=== PATIENT | male | born 1965 | race Caucasian/White ===

== ENCOUNTER 2017-06-16 14:16 | Emergency (ER) | payer OTHER ==
[2017-06-16 14:26] VITALS: RESP 18; TEMP 98
--- NOTE | 2017-06-16 14:44 | EDPHY ---
H & P Smoking Status: Never smoked Time Seen by Provider: 06/16/17 14:29 HPI/ROS: CHIEF COMPLAINT: Right greater than left shoulder pain History by patient HISTORY OF PRESENT ILLNESS: 52-year-old man with no significant past medical history presents complaining of bilateral right greater than left shoulder pain and bruising after a fall 3 days ago. Patient was carrying a box when he slipped on the ice going up a ramp landed on his right side and also his head. He did not lose consciousness. He thinks right arm struck the ground in his left arm went against his body. He denies hitting the box with his arms. Subsequently he has had ongoing pain and soreness in noticed bruising on both sides. He has taken some ibuprofen with some relief. He denies any other pain or injury. He is not on any blood thinners and does not take aspirin. REVIEW OF SYSTEMS: As in HPI, and all other systems reviewed and are negative (Faith Sher) Physical Exam: General Appearance: Alert and uncomfortable appearing Head: Positive ecchymoses right face Eyes: Pupils equal and round no injection. Musculoskeletal: Neck is supple and nontender. Full range of motion of neck Extremities: Bilateral shoulder is without deformity, bilateral biceps with diffuse ecchymoses and tenderness, right shoulder with diffuse anterior tenderness, decreased range of motion actively secondary to pain, positive full range of motion passively, unable to extend arm against resistance Left shoulder, full range of motion with pain, full range of active motion with pain but unable to extend the arm against resistance, bilateral radial pulses 2 + and equal, distal sensation intact, distal motor intact. Skin: No rashes or lesions except as described above. Neuro: Awake alert oriented x3, cranial she is 12 intact, normal gait, see also above (Faith Sher) Constitutional: Initial Vital Signs Temperature (C) 36.6 C 06/16/17 14:24 Heart Rate 106 H 06/16/17 14:24 Respiratory Rate 18 06/16/17 14:24 Blood Pressure 145/100 H 06/16/17 14:24 O2 Sat (%) 97 06/16/17 14:24 O2 Delivery Mode Room Air Allergies/Adverse Reactions: No Known Allergies Allergy (Unverified 03/03/10 13:03) Home Medications: Medication Instructions Recorded Hydrocodone/APAP 5/325 [[place] 1 - 2 tab PO Q4 PRN #10 tab 06/16/17 5/325 (RX)] MDM/Departure - MDM Imaging Results: Imaging Impressions Shoulder X-Ray 06/16/17 14:39 Impression: 1. Findings suspicious for posterior dislocation of the left humeral head with impaction upon the posterior aspect of the glenoid portion of the scapula and fracture fragment adjacent to the humeral neck. If confirmation is necessary then consider CT imaging as clinically directed. Findings discussed with Faith Sher MD at 15:23 hour, 06/16/2017. Shoulder X-Ray 06/16/17 14:40 Impression: 1. Impaction type fracture right humeral neck with some callus formation suspected. 2. The humeral shaft is along the anterior aspect of the humeral neck fracture. Humerus X-Ray 06/16/17 14:41 Impression: 1. Impaction type fracture right humeral neck with early callus formation suspected. Extremity CT 06/16/17 15:33 Impression: Posteriorly dislocated left shoulder joint, with marked comminuted fracture injury to the anterior half of the left humeral head. Results of the patient's bilateral shoulder CT scans called to Dr. Bailey Govea at 4:[address] 06/16/17 15:34 Impression: Transverse moderately comminuted nondisplaced right humeral neck fracture, without intra-articular extension. Underlying right glenohumeral osteoarthritis. 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 X-ray revealed bilateral humeral neck fractures. Radiologist was concerned that there was a possible posterior dislocation in association with the left impacted humeral fracture. I discussed the case with Dr. Mckinley who recommended bilateral slings and follow up as an outpatient. However, on review with Dr. Rhodes in the office he recommended CT scan to evaluate for the posterior dislocation. Therefore CT scan has been ordered. I will transfer care to Dr. Govea pending results of the CT scan with anticipation of the patient being transferred for ortho evaluation at [facility]. (Faith Sher) I assumed care of this patient from Dr. Sher at 3:[address] scan was reported to me by Dr. Russo as showing left comminuted humeral head fracture with posterior dislocation. There is right-sided humeral head fracture that is also comminuted and nondisplaced. Please see formal report. I relayed these results the patient. I spoke with Dr. Mckinley who recommends surgery tomorrow morning (the patient ate a large meal at one PM). Given the patient's bilateral upper extremity injuries I have recommended overnight hospitalization for preoperative evaluation. I think that it will be difficult for him to care for himself with both arms in slings. However, the patient is adamantly opposed to this plan. He feels that he cannot undergo surgery tomorrow and needs to notify his work and make other arrangements. He refuses to be hospitalized. He also refuses to wear bilateral slings. He agreed to have his right arm placed in a sling but feels comfortable with his left arm as is. He understands that his decisions could result in permanent impairment. He understands that he is acting against medical advice. He is able to make his own decisions and voices understanding of the consequences of not immobilizing his arms and of delaying surgery. I have advised him to call Dr. Mckinley's office tomorrow morning and arrange to be seen by one of the mid levels as Dr. Mckinley will not be in the office. Hopefully surgery can be scheduled at that visit. (Bailey Govea) - Depart Disposition: Home, Routine, Self-Care Clinical Impression: Bilateral proximal humeral fractures Condition: Fair Instructions: Shoulder Dislocation (ED), How to Use a Sling (ED), Proximal Humerus Fracture (ED) Additional Instructions: As you know, you have breaks in both of your humerus bones. Your left shoulder is dislocated and broken. It is very important that this be fixed in the operating room. Call Dr. Mckinley's office first thing tomorrow morning to schedule an appointment. He won't be in the office, but one of his physician assistants will probably be able to see you. Dr. Mckinley is the orthopedic surgeon. I recommend that you wear slings on BOTH arms. It is best for you not to move your arms. You cannot drive with this injury. Prescriptions: Hydrocodone/APAP 5/325 [[place] 5/325 (RX)] 1 - 2 tab PO Q4 PRN #10 tab PRN Reason: pain Referrals: Chuck Mckinley MD [Medical Doctor] - As per Instructions
[2017-06-16] MEDS ORDERED: OXYCODONE/APAP 5/325 TAB PO ONE (15:30)
[2017-06-16] MEDS ORDERED: ONDANSETRON DISINTEGRATING 4 MG TAB ONE (15:33)
[2017-06-16] MEDS ORDERED: HYDROCOD/APAP 5/325 PREPACK#6 BTL TAKEHOME ONE (17:35)
[2017-06-16 17:50] VITALS: BP 152/77; PULSE 85; O2SAT 94
== END 2017-06-16 17:47 | disposition home or self-care (01) ==
LOC: CED 14:16
DX: S42.201A Unspecified fracture of upper end of right humerus, initial encounter for closed fracture (principal); S42.202A Unspecified fracture of upper end of left humerus, initial encounter for closed fracture; W01.0XXA Fall on same level from slipping, tripping and stumbling without subsequent striking against object, initial encounter
CPT/HCPCS: 73030-PO; 73060-PO; 73200-PO